=== PATIENT | female | born 1955 | race Caucasian/White ===

== ENCOUNTER 2020-03-25 14:27 | Outpatient (CLI) | payer BC | END 2020-03-25 14:28 | disposition short-term general hospital (02) | LOC: EMS 14:27 | PROVIDERS: ATTEND Surgery | DX: S09.90XA Unspecified injury of head, initial encounter (principal); M79.641 Pain in right hand; M79.646 Pain in unspecified finger(s); W01.0XXA Fall on same level from slipping, tripping and stumbling without subsequent striking against object, initial encounter; Y92.830 Public park as the place of occurrence of the external cause | CPT/HCPCS: A0425; A0429 ==